=== PATIENT | male | born 2000 | race Hispanic/Latino ===

== ENCOUNTER 2024-11-08 07:38 | Day surgery (SDC) | payer OTHER ==
[2024-11-06 14:55] VITALS: BMI 36.5
[2024-11-08] MEDS ORDERED: AFRIN NASAL MIST 15 ML BOT ONE (09:19)
[2024-11-08] MEDS ORDERED: Lidocaine 1% w/Epinephrine 1:200K 30 ML VIAL ONE (09:51)
[2024-11-08] MEDS ORDERED: Bacitracin 1 PK ONE (09:51)
[2024-11-08] MEDS ORDERED: Lidocaine 1% PF 5 ML VIAL ONE (09:57)
[2024-11-08] MEDS ORDERED: PROPOFOL 20 ML ONE (09:57)
[2024-11-08] MEDS ORDERED: Fentanyl 250 MCG/5 ML VIAL ONE (09:57)
[2024-11-08] MEDS ORDERED: SUGAMMADEX SODIUM 200 MG/2 ML VIAL ONE ×2 (09:58→10:58)
[2024-11-08] MEDS ORDERED: Dexamethasone 4 mg/ml Vial ONE (09:58)
[2024-11-08] MEDS ORDERED: Ondansetron PF 4 MG/2 ML Vial ONE (09:58)
[2024-11-08] MEDS ORDERED: Oxymetazoline HCl 0.05% ( 15 ML ) ONE (10:48)
[2024-11-08] MEDS ORDERED: HYDROcodone/Acetaminophen 5/325 mg Tablet ONE (11:45)
== END 2024-11-08 12:25 | disposition home or self-care (01) ==
LOC: CSHSDC 07:38
PROVIDERS: ATTEND Otolaryngology Plastic Surgery within the Head & Neck
PROC: 09TL8ZZ Resection of Nasal Turbinate, Via Natural or Artificial Opening Endoscopic (ICD-10-PCS; principal; 2024-11-08)
PROC: 09TU8ZZ Resection of Right Ethmoid Sinus, Via Natural or Artificial Opening Endoscopic (ICD-10-PCS; principal; 2024-11-08)
PROC: 09TQ8ZZ Resection of Right Maxillary Sinus, Via Natural or Artificial Opening Endoscopic (ICD-10-PCS; principal; 2024-11-08)
PROC: 09BM8ZZ Excision of Nasal Septum, Via Natural or Artificial Opening Endoscopic (ICD-10-PCS; principal; 2024-11-08)
DX: J34.2 Deviated nasal septum (principal); J34.3 Hypertrophy of nasal turbinates; J32.4 Chronic pansinusitis; J01.91 Acute recurrent sinusitis, unspecified
CPT/HCPCS: J1100; J2405; J2704; J3010